=== PATIENT | female | born 1975 | race Caucasian/White ===

== ENCOUNTER 2021-03-22 15:35 | Emergency (ER) | payer SELFPAY ==
[2021-03-22 15:59] VITALS: BP 156/80; PULSE 76; TEMP 98.4; BMI 24.7
== END 2021-03-22 17:00 | disposition home or self-care (01) ==
LOC: JVIRT 15:35 → JER 15:35 → EDBD 15:35 → JER 17:00
DX: R05 Cough (principal); R50.9 Fever, unspecified; M79.10 Myalgia, unspecified site; Z11.52 Encounter for screening for COVID-19
CPT/HCPCS: 99283-25; C9803; U0003; U0005